=== PATIENT | male | born 1975 | race Caucasian/White ===

== ENCOUNTER → 2019-02-15 17:40 | Outpatient (CLI) | payer OTHER, SELFPAY ==
--- NOTE | 2019-02-15 | DI.MRI.S_ITS ---
PROCEDURE: MR KNEE LT WO CON INDICATIONS: POSS LEFR LATERAL LIGAMENT TEAR TECHNIQUE: Noncontrast sagittal PD fast spin echo and T2 fast spin echo with fat saturation, sagittal 3-D FLASH with fat saturation; coronal T1 spin echo and PD fast spin echo with fat saturation, and axial PD fast spin echo with fat saturation through the knee. COMPARISON: None. FINDINGS: Image quality: Diagnostic. Bones and joint: There is no acute fracture or dislocation. No suspicious osseous lesions are evident. There is a moderate-sized knee joint effusion with a small amount of heterogeneous fluid contained within the Fuentes's cyst. There appear to be intra-articular joint bodies within a Fuentes's cyst. Surface irregularity of the hyaline articular cartilage is present within the patellofemoral compartment and the lateral tibiofemoral compartment. There likely are areas of cartilage has fissuring. No large full thickness defects of the hyaline articular cartilage within these 2 compartments are present. Irregular and large full thickness defects of the hyaline articular cartilage are present within the medial tibiofemoral compartment there is a degenerative reactive marrow change and mild irregularity of the underlying cortex. A small amount of fluid is contained within the proximal tibiofibular joint. Cruciate ligaments: The anterior and posterior cruciate ligaments are intact. Increased signal involving the anterior cruciate ligament is present on the axial images. Menisci: The lateral meniscus is intact and otherwise unremarkable. There is a horizontal oblique tear identified involving the body and posterior horn that extends from the periphery to the free edge/apex of the medial meniscus. There is an associated moderate-sized ganglion cyst identified along the medial aspect of the knee, which measures approximately 2.0 x 1.2 x 2.2 cm (image 24, series 10). Medial structures: The medial collateral ligament is intact. The semimembranosus tendon insertion is intact. The imaged portions of the pes anserinus tendons are unremarkable. No significant fluid is contained within the pes anserinus bursa. There is a small medial patellar plica. Heterogeneity of the medial patellofemoral ligament may represent scarring from previous partial thickness injury. Lateral structures: The popliteal tendon is mildly edematous. The lateral collateral ligament proper (fibular collateral ligament) and the proximal tibiofibular ligaments are intact. The distal aspect of the biceps femoris tendon and the iliotibial band are intact. Anterior structures: The quadriceps and patellar tendons are intact. There is increased signal involving the patellar tendon on the sagittal images. Small amount of fluid is contained within the deep infrapatellar bursa. There is mild prepatellar edema. There is mild edema in the infrapatellar fat pad. IMPRESSION: 1. No acute lateral ligamentous injury of the knee. 2. Mild proximal popliteal tendinopathy. 3. Small amount of fluid within the proximal tibiofibular joint may be related to degenerative change. 4. Complex medial meniscal tear with an associated moderate-sized parameniscal cyst. 5. Mild patellar tendinopathy. 6. Irregularity of the medial patellofemoral ligament is suggestive of scarring from previous injury. 7. Small medial patellar plica. 8. Moderate degenerative changes of the knee are most pronounced within the medial compartment. 9. Moderate size joint effusion with an associated Fuentes's cyst containing intra-articular joint bodies. 10. Questionable anterior cruciate ligament sprain. Dictated by: Carlin Locke M.D. on 02/16/2019 at 13:55 Approved by: Carlin Locke M.D. on 02/16/2019 at 14:02
== END ==
PROVIDERS: Visit Provider Nurse Practitioner Family
DX: S83.242A Other tear of medial meniscus, current injury, left knee, initial encounter (principal); M71.22 Synovial cyst of popliteal space [Baker], left knee
CPT/HCPCS: 73721